=== PATIENT | male | born 1985 ===

== ENCOUNTER 2022-06-06 10:29 | Emergency (ER) | payer SELFPAY ==
[~2022-06-06] VITALS: Ht 182.9 cm; Wt 90.9 kg
[2022-06-06 10:42] VITALS: BP 135/92
== END 2022-06-06 11:25 | disposition left against medical advice (07) ==
LOC: ER 10:30
DX: R21 Rash and other nonspecific skin eruption (principal); Z53.21 Procedure and treatment not carried out due to patient leaving prior to being seen by health care provider